=== PATIENT | male | born 1980 | race Caucasian/White ===

== ENCOUNTER 2018-11-15 15:26 | Emergency (ER) | payer MEDICARE ==
[2018-11-15] MEDS ORDERED: Adacel (T-DAP) 0.5 ML SYRINGE ONE (16:06)
[2018-11-15] MEDS ORDERED: Ibuprofen 200 MG TAB ONE (16:14)
--- NOTE | 2018-11-15 17:03 | RAD ---
LEFT THIRD FINGER: 11/15/18 Three views showed no fracture. The joints appear normal. IMPRESSION: No acute bony finding. POS: HOME
== END 2018-11-15 16:19 | disposition home or self-care (01) ==
LOC: BURERS 15:26
DX: S67.193A Crushing injury of left middle finger, initial encounter (principal); F17.210 Nicotine dependence, cigarettes, uncomplicated; W23.0XXA Caught, crushed, jammed, or pinched between moving objects, initial encounter
CPT/HCPCS: 90471; 90715